=== PATIENT | female | born 1970 | race Caucasian/White ===

== ENCOUNTER 2023-02-17 13:08 | Observation (INO) ==
[2023-02-17] MEDS ORDERED: CONSULT PHARMACY - POTASSIUM & MAGNESIUM XX SCH (14:00)
[2023-02-17 14:15] VITALS: BMI 22.8
[2023-02-17 14:26] LABS: BASOPHILS # (AUTO) 0.1 X10^3/uL (0.0-0.1); BASOPHILS % (AUTO) 0.8 % (0.2-1.0); EOSINOPHILS # (AUTO) 0.2 x10^3/uL (0.0-0.2); EOSINOPHILS % (AUTO) 2.2 % (0.9-2.9); HEMATOCRIT 34.3 % (36.0-47.0); HEMOGLOBIN 10.4 g/dL (12.0-16.0); LYMPHOCYTES # (AUTO) 3.1 X10^3/uL (1.3-2.9); LYMPHOCYTES % (AUTO) 36.3 % (21.0-51.0); MEAN CORPUSCULAR HEMOGLOBIN 17.9 pg (27.0-34.0); MEAN CORPUSCULAR HGB CONC 30.2 g/dL (33.0-35.0); MEAN PLATELET VOLUME 8.6 fL (7.4-11.0); MONOCYTES # (AUTO) 0.5 x10^3/uL (0.3-0.8); NEUTROPHILS # (AUTO) 4.7 x10^3/uL (2.2-4.8); NEUTROPHILS % (AUTO) 54.7 % (42.0-75.0); PLATELET COUNT 567 X10^3/uL (150.0-450.0); RED CELL DISTRIBUTION WIDTH 19.3 % (11.6-16.5); WHITE BLOOD COUNT 8.5 X10^3/uL (3.6-10.0)
[2023-02-17 14:34] LABS: ALANINE AMINOTRANSFERASE 25 Units/L (12-78); ALBUMIN 4.1 g/dL (3.4-5.0); ALKALINE PHOSPHATASE 112 Units/L (46-116); ASPARTATE AMINO TRANSFERASE 22 Units/L (15-37); BLOOD UREA NITROGEN 9 mg/dL (7-18); CARBON DIOXIDE 30.1 mmol/L (21-32); CHLORIDE 100 mmol/L (98-107); CREATININE 0.88 mg/dL (0.55-1.02); GLUCOSE 70 mg/dL (65-99); POTASSIUM 3.6 mmol/L (3.5-5.1); SODIUM 139 mmol/L (136-145); TOTAL PROTEIN 8.4 g/dL (6.4-8.2); eGFR NON BLACK RACES > 60 (>60)
[2023-02-17 14:42] LABS: ANISOCYTOSIS SLIGHT; HYPOCHROMASIA 3+; MICROCYTOSIS 3+; OVALOCYTES SLIGHT; PLATELET MORPHOLOGY COMMENT NORMAL (NORMAL); TARGET CELLS SLIGHT
[2023-02-17] MEDS ORDERED: K-DUR TAB 20 MEQ PO SCH (15:00)
[2023-02-17 15:27] LABS: IRON 19 ug/dL (50-175); TOTAL IRON BINDING CAPACITY 619 ug/dL (250-450)
[2023-02-17] MEDS: REQUIP PO PRN (15:47)
[2023-02-17] MEDS: HEMOCYTE-PLUS PO SCH (17:56)
[2023-02-17] MEDS: NS 1,000 ML IV 1,000 ML IV SCH (17:56)
[2023-02-17] MEDS: ZOFRAN INJ 4 MG VIAL IVP PRN (18:29)
[2023-02-17] MEDS ORDERED: PHENERGAN TAB 25 MG PO PRN (20:37)
[2023-02-17] MEDS ORDERED: PATIENT'S HOME MEDICATION (Temazepam 30 mg capsule) PO PRN (20:37)
[2023-02-17] MEDS ORDERED: RESTORIL CAP 30 MG PO PRN (20:59)
[2023-02-17] MEDS ORDERED: CATAPRES TAB 0.1 MG PO SCH (21:00)
[2023-02-17] MEDS ORDERED: BUSPAR PO SCH (21:00)
[2023-02-17] MEDS ORDERED: DEPAKOTE D.R. TAB PO SCH (21:00)
[2023-02-17] MEDS ORDERED: ESZOPICLONE 1 MG PO SCH (21:00)
[2023-02-17] MEDS: VASOTEC TAB 20 MG PO SCH (21:34)
[2023-02-17] MEDS: ZANAFLEX PO SCH (21:34)
[2023-02-17] MEDS: XANAX PO PRN (21:36)
[2023-02-17] MEDS: AMBIEN PO SCH (21:38)
[2023-02-17] MEDS ORDERED: CATAPRES TAB 0.1 MG PO PRN (22:53)
[2023-02-18] MEDS: NS 1,000 ML IV 1,000 ML IV SCH ×4 (00:59→21:16)
[2023-02-18 05:08] LABS: BASOPHILS # (AUTO) 0.1 X10^3/uL (0.0-0.1); EOSINOPHILS # (AUTO) 0.3 x10^3/uL (0.0-0.2); EOSINOPHILS % (AUTO) 3.8 % (0.9-2.9); HEMATOCRIT 29.4 % (36.0-47.0); HEMOGLOBIN 9.1 g/dL (12.0-16.0); LYMPHOCYTES # (AUTO) 3.9 X10^3/uL (1.3-2.9); LYMPHOCYTES % (AUTO) 57.2 % (21.0-51.0); MEAN CORPUSCULAR HEMOGLOBIN 18.3 pg (27.0-34.0); MEAN CORPUSCULAR HGB CONC 31.1 g/dL (33.0-35.0); MEAN CORPUSCULAR VOLUME 58.9 fL (80.0-100.0); MEAN PLATELET VOLUME 8.6 fL (7.4-11.0); MONOCYTES # (AUTO) 0.3 x10^3/uL (0.3-0.8); MONOCYTES % (AUTO) 4.9 % (0.0-13.0); NEUTROPHILS # (AUTO) 2.2 x10^3/uL (2.2-4.8); NEUTROPHILS % (AUTO) 32.1 % (42.0-75.0); PLATELET COUNT 427 X10^3/uL (150.0-450.0); RED BLOOD COUNT 4.99 X10^6/uL (3.5-5.4); RED CELL DISTRIBUTION WIDTH 19.4 % (11.6-16.5); WHITE BLOOD COUNT 6.7 X10^3/uL (3.6-10.0)
[2023-02-18 05:15] LABS: ALANINE AMINOTRANSFERASE 19 Units/L (12-78); ALBUMIN 3.3 g/dL (3.4-5.0); ALKALINE PHOSPHATASE 88 Units/L (46-116); ASPARTATE AMINO TRANSFERASE 17 Units/L (15-37); BLOOD UREA NITROGEN 8 mg/dL (7-18); CALCIUM 8.6 mg/dL (8.5-10.1); CARBON DIOXIDE 27.8 mmol/L (21-32); CHLORIDE 103 mmol/L (98-107); COR CA(FOR HYPOALB) 9.2 mg/dL (8.5-10.1); CREATININE 0.71 mg/dL (0.55-1.02); GLUCOSE 75 mg/dL (65-99); POTASSIUM 4.2 mmol/L (3.5-5.1); SODIUM 139 mmol/L (136-145); TOTAL PROTEIN 6.6 g/dL (6.4-8.2); eGFR NON BLACK RACES > 60 (>60)
[2023-02-18] MEDS: ZANAFLEX PO SCH ×3 (05:40→21:17)
[2023-02-18 05:53] LABS: PLATELET MORPHOLOGY COMMENT NORMAL (NORMAL)
[2023-02-18 05:54] LABS: ANISOCYTOSIS SLIGHT; HYPOCHROMASIA 3+; MICROCYTOSIS 3+; OVALOCYTES PRESENT; TARGET CELLS PRESENT
[2023-02-18] MEDS ORDERED: ROXICODONE TAB 15 MG PO PRN (06:32)
[2023-02-18] MEDS ORDERED: TYLENOL 325 MG TAB PO PRN (06:32)
[2023-02-18] MEDS ORDERED: PATIENT'S HOME MEDICATION (Cariprazine [Vraylar] 1.5 mg capsule) PO SCH (09:00)
[2023-02-18] MEDS ORDERED: RIZATRIPTAN 10 MG PO SCH (09:00)
[2023-02-18] MEDS ORDERED: [UNRECOGNIZED DRUG - OTHER] PO SCH (09:00)
[2023-02-18] MEDS ORDERED: NS 100 ML IV 100 ML with VENOFER 400 MG IV NR ×2 (10:00)
[2023-02-18] MEDS: IMITREX TAB PO SCH (10:20)
[2023-02-18] MEDS: VASOTEC TAB 20 MG PO SCH ×2 (10:24→21:16)
[2023-02-18] MEDS: PROTONIX TAB 40 MG PO SCH (10:25)
[2023-02-18] MEDS: NORTRIPTYLINE 25 MG PO SCH ×2 (10:26)
[2023-02-18] MEDS: MOBIC TAB 15 MG PO SCH (10:26)
[2023-02-18] MEDS: HEMOCYTE-PLUS PO SCH (10:27)
[2023-02-18] MEDS: AMBIEN PO SCH (21:15)
[2023-02-19] MEDS: ZANAFLEX PO SCH ×3 (05:49→21:31)
[2023-02-19 06:01] LABS: BASOPHILS # (AUTO) 0.1 X10^3/uL (0.0-0.1); BASOPHILS % (AUTO) 1.2 % (0.2-1.0); EOSINOPHILS # (AUTO) 0.2 x10^3/uL (0.0-0.2); EOSINOPHILS % (AUTO) 2.4 % (0.9-2.9); HEMATOCRIT 25.3 % (36.0-47.0); HEMOGLOBIN 7.8 g/dL (12.0-16.0); LYMPHOCYTES # (AUTO) 2.7 X10^3/uL (1.3-2.9); MEAN CORPUSCULAR HGB CONC 30.8 g/dL (33.0-35.0); MEAN CORPUSCULAR VOLUME 58.7 fL (80.0-100.0); MEAN PLATELET VOLUME 8.9 fL (7.4-11.0); MONOCYTES # (AUTO) 0.4 x10^3/uL (0.3-0.8); MONOCYTES % (AUTO) 4.9 % (0.0-13.0); NEUTROPHILS # (AUTO) 4.2 x10^3/uL (2.2-4.8); NEUTROPHILS % (AUTO) 55.5 % (42.0-75.0); PLATELET COUNT 368 X10^3/uL (150.0-450.0); RED CELL DISTRIBUTION WIDTH 19.3 % (11.6-16.5); WHITE BLOOD COUNT 7.6 X10^3/uL (3.6-10.0)
[2023-02-19 06:20] LABS: ALANINE AMINOTRANSFERASE 18 Units/L (12-78); ALBUMIN 2.7 g/dL (3.4-5.0); ALKALINE PHOSPHATASE 77 Units/L (46-116); ASPARTATE AMINO TRANSFERASE 15 Units/L (15-37); BLOOD UREA NITROGEN 6 mg/dL (7-18); CALCIUM 8.1 mg/dL (8.5-10.1); CARBON DIOXIDE 27.8 mmol/L (21-32); CHLORIDE 105 mmol/L (98-107); COR CA(FOR HYPOALB) 9.1 mg/dL (8.5-10.1); CREATININE 0.66 mg/dL (0.55-1.02); GLUCOSE 78 mg/dL (65-99); POTASSIUM 3.9 mmol/L (3.5-5.1); SODIUM 139 mmol/L (136-145); TOTAL PROTEIN 5.7 g/dL (6.4-8.2); eGFR NON BLACK RACES > 60 (>60)
[2023-02-19 06:31] LABS: ANISOCYTOSIS SLIGHT; HYPOCHROMASIA 3+; MICROCYTOSIS 3+; PLATELET MORPHOLOGY COMMENT NORMAL (NORMAL); TARGET CELLS 1+
[2023-02-19] MEDS: ZOFRAN INJ 4 MG VIAL IVP PRN (08:44)
[2023-02-19] MEDS ORDERED: INFeD or DEXFERRUM 25 MG in NS 100 ML IV 100 ML IV ONE (10:00)
[2023-02-19] MEDS: VASOTEC TAB 20 MG PO SCH ×2 (10:59→21:44)
[2023-02-19] MEDS: ELAVIL PO SCH (11:00)
[2023-02-19] MEDS: IMITREX TAB PO SCH ×2 (11:00→11:37)
[2023-02-19] MEDS: MOBIC TAB 15 MG PO SCH (11:01)
[2023-02-19] MEDS: PROTONIX TAB 40 MG PO SCH (11:01)
[2023-02-19] MEDS: HEMOCYTE-PLUS PO SCH (11:01)
[2023-02-19] MEDS ORDERED: INFeD or DEXFERRUM 975 MG in NS 500 ML IV 500 ML IV ONE (11:30)
[2023-02-19] MEDS: REQUIP PO PRN (11:36)
[2023-02-19] MEDS: XANAX PO PRN (11:44)
[2023-02-19 13:13] VITALS: RESP 18
[2023-02-19] MEDS: NS 1,000 ML IV 1,000 ML IV SCH ×2 (13:35→21:33)
--- NOTE | 2023-02-19 18:03 | DR.UPDATE ---
H&P Update Prescription drug monitoring program results: PDMP reviewed and no concerns identified H&P Reviewed: Yes Any changes to H&P?: Yes Changes noted:: PRESENTED THE OFFICE WITH COMPLAINTS OF INCREASING FATIGUE, GENERALIZED WEAKNESS, AND SHORTNESS OF BREATH. SYMPTOMS STARTED A FEW WEEKS AGO AND HAVE PROGRESSIVELY GOTTEN WORSE. LABS WERE OBTAINED ON 02/03 AND REVEALED AN IRON LEVEL OF 12 AND IRON SATURATION OF 2. HER HEMOGLOBIN WAS 9.0. SHE WAS ADMITTED FOR FURTHER EVALUATION AND TREATMENT OF SYMPTOMATIC IRON DEFICIENCY ANEMIA, GENERALIZED WEAKNESS, AND SHORTNESS OF BREATH. HER PMH INCLUDES: HTN, CHRONIC PANCREATITIS, FIBROMYALGIA, ARTHRITIS, OSTEOARTHRITIS, ANEMIA, ANXIETY, BIPOLAR DISORDER, APPENDECTOMY, CHOLECYTECTOMY, HYSTERECTOMY, TONSILLECTOMY, AND GASTRIC BYPASS. ON ARRIVAL TO THE HOSPTIAL, HER VITALS WERE: [id number]/80. LABS WERE OBTAINED. WBC 8.5, RBC 5.80, HGB 10.4, HCT 34.3, PLT COUNT 567, SODIUM 139, POTASSIUM 3.6, CHLORIDE 100, BUN 9, CREATININE 0.88, GLUCOSE 70, CALCIUM 9.0, MAGNESIUM 1.9, IRON 19, TIBC 619, IRON SATURATION % 3.1, AST 22, ALT 25, ALK PHOS 112, TOTAL PROTEIN 8.4, ALBUMIN 4.1. ON ADMISSION, SHE WAS STARTED ON NORMAL SALINE AT 75 ML/HR, ZOFRAN 4MG IV Q6H PRN, HEMOCYTE PLUS DAILY, OTBS ACHS, TYLENOL 325MG PO Q8H PRN. HER HOME MEDICATIONS OF XANAX, ELAVIL, CATAPRES, VASOTEC, MOBIC, ROXICODONE, PROTONIX, PHENERGAN, REQUIP, IMITREX, ZANAFLEX, AND AMBIEN WERE RESUMED. WE WILL CONSULT PHARMACY FOR AN INFUSION OF VENOFER. OTHERWISE, WE WILL FOLLOW UP WITH AM LABS AND CONTINUE TO MONITOR. TIME SPENT ON CLINICAL ASSESSMENT, REVIEWING LABS AND IMAGING, DECISION MAKING, AND DOCUMENTATION GREATER THAN 75 MINUTES. Patient was examined?: Yes Vital Signs: Temp Pulse Resp BP Pulse Ox O2 Del Method O2 Flow Rate 02/19/23 16:00 98.8 F 87 18 111/61 97 Room Air 02/19/23 11:57 20 02/19/23 12:00 98.6 F 92 H 18 126/75 95 Room Air 02/19/23 07:00 Room Air 02/19/23 10:57 20 02/19/23 08:12 Room Air 02/19/23 07:55 98.6 F 108 H 18 116/61 98 Room Air 02/19/23 04:00 98.6 F 71 20 93/54 96 Room Air 02/19/23 00:00 98.3 F 69 20 95/51 96 Room Air 02/18/23 22:17 20 02/18/23 21:17 20 02/18/23 19:00 Room Air 02/18/23 20:00 99.5 F 93 H 18 107/57 98 Room Air 02/18/23 20:49 Nasal Cannula 2 02/18/23 16:00 97.5 F L 77 18 118/62 98 Room Air 02/18/23 12:00 97.8 F 72 18 67/42 96 Room Air 02/18/23 07:00 Room Air 02/18/23 08:00 Room Air 2 02/18/23 08:00 97.6 F 73 20 109/57 100 Room Air 02/18/23 04:00 98.5 F 79 20 88/50 02/18/23 00:00 97.9 F 77 20 93/50 Room Air 02/17/23 20:40 Nasal Cannula 2 02/17/23 19:00 Room Air 02/17/23 19:46 98.1 F 96 H 20 126/73 97 Room Air 02/17/23 16:22 Nasal Cannula 2 02/17/23 15:55 98.1 F 88 20 123/63 Room Air 02/17/23 13:21 Room Air 02/17/23 13:21 98.0 F 107 H 20 140/80 Room Air FiO2 02/19/23 16:00 02/19/23 11:57 02/19/23 12:00 02/19/23 07:00 02/19/23 10:57 02/19/23 08:12 02/19/23 07:55 02/19/23 04:00 02/19/23 00:00 02/18/23 22:17 02/18/23 21:17 02/18/23 19:00 02/18/23 20:00 02/18/23 20:49 28 02/18/23 16:00 02/18/23 12:00 02/18/23 07:00 02/18/23 08:00 28 02/18/23 08:00 02/18/23 04:00 02/18/23 00:00 02/17/23 20:40 28 02/17/23 19:00 02/17/23 19:46 02/17/23 16:22 28 02/17/23 15:55 02/17/23 13:21 02/17/23 13:21
[2023-02-19] MEDS ORDERED: COLACE CAP 100 MG PO PRN (19:34)
[2023-02-19] MEDS: AMBIEN PO SCH (23:22)
[2023-02-20] MEDS: AMBIEN PO SCH (00:02)
[2023-02-20] MEDS: XANAX PO PRN (03:00)
[2023-02-20] MEDS: ZOFRAN INJ 4 MG VIAL IVP PRN (03:27)
[2023-02-20] MEDS: NS 1,000 ML IV 1,000 ML IV SCH ×2 (04:39→11:04)
[2023-02-20 04:52] LABS: BASOPHILS # (AUTO) 0.1 X10^3/uL (0.0-0.1); BASOPHILS % (AUTO) 1.2 % (0.2-1.0); EOSINOPHILS # (AUTO) 0.2 x10^3/uL (0.0-0.2); EOSINOPHILS % (AUTO) 3.8 % (0.9-2.9); HEMATOCRIT 25.7 % (36.0-47.0); LYMPHOCYTES # (AUTO) 3.2 X10^3/uL (1.3-2.9); LYMPHOCYTES % (AUTO) 54.8 % (21.0-51.0); MEAN CORPUSCULAR HEMOGLOBIN 18.5 pg (27.0-34.0); MEAN CORPUSCULAR VOLUME 59.6 fL (80.0-100.0); MEAN PLATELET VOLUME 7.8 fL (7.4-11.0); MONOCYTES # (AUTO) 0.4 x10^3/uL (0.3-0.8); MONOCYTES % (AUTO) 6.4 % (0.0-13.0); NEUTROPHILS % (AUTO) 33.8 % (42.0-75.0); PLATELET COUNT 370 X10^3/uL (150.0-450.0); RED BLOOD COUNT 4.32 X10^6/uL (3.5-5.4); RED CELL DISTRIBUTION WIDTH 19.5 % (11.6-16.5); WHITE BLOOD COUNT 5.9 X10^3/uL (3.6-10.0)
[2023-02-20 05:06] LABS: ALBUMIN 2.9 g/dL (3.4-5.0); ALKALINE PHOSPHATASE 81 Units/L (46-116); BLOOD UREA NITROGEN 4 mg/dL (7-18); CALCIUM 8.3 mg/dL (8.5-10.1); CARBON DIOXIDE 27.8 mmol/L (21-32); CHLORIDE 109 mmol/L (98-107); COR CA(FOR HYPOALB) 9.2 mg/dL (8.5-10.1); GLUCOSE 89 mg/dL (65-99); POTASSIUM 4.2 mmol/L (3.5-5.1); SODIUM 142 mmol/L (136-145); TOTAL PROTEIN 5.7 g/dL (6.4-8.2); eGFR NON BLACK RACES > 60 (>60)
[2023-02-20] MEDS: ZANAFLEX PO SCH (05:39)
[2023-02-20 05:43] LABS: ANISOCYTOSIS SLIGHT; HYPOCHROMASIA 3+; MICROCYTOSIS 3+; PLATELET MORPHOLOGY COMMENT NORMAL (NORMAL)
[2023-02-20 05:44] LABS: OVALOCYTES SLIGHT; SCHISTOCYTES SLIGHT; TARGET CELLS 1+
[2023-02-20 05:46] LABS: ALANINE AMINOTRANSFERASE 15 Units/L (12-78); ASPARTATE AMINO TRANSFERASE 19 Units/L (15-37)
[2023-02-20] MEDS: HEMOCYTE-PLUS PO SCH (09:05)
[2023-02-20] MEDS: MOBIC TAB 15 MG PO SCH (09:06)
[2023-02-20] MEDS: VASOTEC TAB 20 MG PO SCH (09:06)
[2023-02-20] MEDS: ELAVIL PO SCH (09:06)
[2023-02-20] MEDS: IMITREX TAB PO SCH (09:07)
[2023-02-20] MEDS: PROTONIX TAB 40 MG PO SCH (09:07)
[2023-02-20 09:24] VITALS: BP 123/72; PULSE 86; TEMP 98.8; O2SAT 97
--- NOTE | 2023-02-24 16:25 | W.DIS.FURT ---
Summary of Discharge Discharge Summary of Date Date of Exam: 02/20/23 Admission Date Date of Admission: 02/18/23 Admission Diagnosis Hospital Course: Ms. Hemphill is a 52-year-old female who was admitted for symptomatic anemia. She was seen in the office with symptoms of fatigue, generalized weakness and shortness of breath. Outpatient labs revealed iron level of 12 and hemoglobin was 9. She has a history of BERNA, chronic pancreatitis, hypertension, fibromyalgia, osteoarthritis, anxiety and bipolar disorder. Patient was admitted for further management of anemia. She was started on iron infusion and p.o. iron supplement. She states she was not taking iron supplement as it made her sick with nausea and upset stomach. Her labs were monitored daily and electrolytes were replaced as needed. Her home medications were resumed. Her hemoglobin was 8.0 on day of discharge. She states her weakness and fatigue has improved. Her baseline hemoglobin is between 8 and 9. She was ambulating in the room and tolerating p.o. intake. She was stable for discharge home. She will follow-up with her PCP in 3 days and have repeat labs done. She was started on Ambien for insomnia while inpatient, discussed with patient that she can be discharged on 3 days of Ambien as needed but will need to discuss with PCP. She was also discharged on ropinirole for restless leg syndrome. Vital Signs: Vital Signs (72 hours) 02/17/23 13:21 02/17/23 13:21 02/17/23 15:55 Temperature 98.0 F 98.1 F Pulse Rate [Right Brachial] 107 H 88 Respiratory Rate 20 20 Blood Pressure [Right Arm] 140/80 123/63 O2 Sat by Pulse Oximetry Oxygen Delivery Method Room Air Room Air Room Air Oxygen Flow Rate FIO2% 02/17/23 16:22 02/17/23 19:46 02/17/23 19:00 Temperature 98.1 F Pulse Rate [Right Brachial] 96 H Respiratory Rate 20 Blood Pressure [Right Arm] 126/73 O2 Sat by Pulse Oximetry 97 Oxygen Delivery Method Nasal Cannula Room Air Room Air Oxygen Flow Rate 2 FIO2% 28 02/17/23 20:40 02/18/23 00:00 02/18/23 04:00 Temperature 97.9 F 98.5 F Pulse Rate [Right Brachial] 77 79 Respiratory Rate 20 20 Blood Pressure [Right Arm] 93/50 88/50 O2 Sat by Pulse Oximetry Oxygen Delivery Method Nasal Cannula Room Air Oxygen Flow Rate 2 FIO2% 28 02/18/23 08:00 02/18/23 08:00 02/18/23 07:00 Temperature 97.6 F Pulse Rate [Right Brachial] 73 Respiratory Rate 20 Blood Pressure [Right Arm] 109/57 O2 Sat by Pulse Oximetry 100 Oxygen Delivery Method Room Air Room Air Room Air Oxygen Flow Rate 2 FIO2% 28 02/18/23 12:00 02/18/23 16:00 02/18/23 20:49 Temperature 97.8 F 97.5 F L Pulse Rate [Right Brachial] 72 77 Respiratory Rate 18 18 Blood Pressure [Right Arm] 67/42 118/62 O2 Sat by Pulse Oximetry 96 98 Oxygen Delivery Method Room Air Room Air Nasal Cannula Oxygen Flow Rate 2 FIO2% 28 02/18/23 20:00 02/18/23 19:00 02/18/23 21:17 Temperature 99.5 F Pulse Rate [Right Brachial] 93 H Respiratory Rate 18 20 Blood Pressure [Right Arm] 107/57 O2 Sat by Pulse Oximetry 98 Oxygen Delivery Method Room Air Room Air Oxygen Flow Rate FIO2% 02/18/23 22:17 02/19/23 00:00 02/19/23 04:00 Temperature 98.3 F 98.6 F Pulse Rate [Right Brachial] 69 71 Respiratory Rate 20 20 20 Blood Pressure [Right Arm] 95/51 93/54 O2 Sat by Pulse Oximetry 96 96 Oxygen Delivery Method Room Air Room Air Oxygen Flow Rate FIO2% 02/19/23 07:55 02/19/23 08:12 02/19/23 10:57 Temperature 98.6 F Pulse Rate [Right Brachial] 108 H Respiratory Rate 18 20 Blood Pressure [Right Arm] 116/61 O2 Sat by Pulse Oximetry 98 Oxygen Delivery Method Room Air Room Air Oxygen Flow Rate FIO2% 02/19/23 07:00 02/19/23 12:00 02/19/23 11:57 Temperature 98.6 F Pulse Rate [Right Brachial] 92 H Respiratory Rate 18 20 Blood Pressure [Right Arm] 126/75 O2 Sat by Pulse Oximetry 95 Oxygen Delivery Method Room Air Room Air Oxygen Flow Rate FIO2% 02/19/23 16:00 02/19/23 19:00 02/19/23 20:00 Temperature 98.8 F 98.8 F Pulse Rate [Right Brachial] 87 70 Respiratory Rate 18 18 Blood Pressure [Right Arm] 111/61 106/53 O2 Sat by Pulse Oximetry 97 97 Oxygen Delivery Method Room Air Room Air Room Air Oxygen Flow Rate FIO2% 02/19/23 20:09 02/20/23 00:01 02/20/23 00:00 Temperature 97.6 F Pulse Rate [Right Brachial] 76 Respiratory Rate 18 Blood Pressure [Right Arm] 108/70 O2 Sat by Pulse Oximetry 97 Oxygen Delivery Method Nasal Cannula Nasal Cannula Oxygen Flow Rate 2 2 FIO2% 28 28 02/20/23 04:00 02/20/23 07:00 02/20/23 08:00 Temperature 98.2 F 98.8 F Pulse Rate [Right Brachial] 70 86 Respiratory Rate 18 18 Blood Pressure [Right Arm] 109/63 123/72 O2 Sat by Pulse Oximetry 98 97 Oxygen Delivery Method Room Air Room Air Room Air Oxygen Flow Rate FIO2% 02/20/23 09:29 Temperature Pulse Rate [Right Brachial] Respiratory Rate Blood Pressure [Right Arm] O2 Sat by Pulse Oximetry Oxygen Delivery Method Nasal Cannula Oxygen Flow Rate 2 FIO2% 28 Labs: Laboratory Last Values WBC 5.9 X10^3/uL (3.6-10.0) 02/20/23 04:33 RBC 4.32 X10^6/uL (3.5-5.4) 02/20/23 04:33 Hgb 8.0 g/dL (12.0-16.0) L 02/20/23 04:33 Hct 25.7 % (36.0-47.0) L 02/20/23 04:33 MCV 59.6 fL (80.0-100.0) L 02/20/23 04:33 MCH 18.5 pg (27.0-34.0) L 02/20/23 04:33 MCHC 31.0 g/dL (33.0-35.0) L 02/20/23 04:33 RDW 19.5 % (11.6-16.5) H 02/20/23 04:33 Plt Count 370 X10^3/uL (150.0-450.0) 02/20/23 04:33 Plt Count Comment Adequate (ADEQUATE) 02/20/23 04:33 MPV 7.8 fL (7.4-11.0) 02/20/23 04:33 Neut % (Auto) 33.8 % (42.0-75.0) L 02/20/23 04:33 Lymph % (Auto) 54.8 % (21.0-51.0) H 02/20/23 04:33 Floyd % (Auto) 6.4 % (0.0-13.0) 02/20/23 04:33 Eos % (Auto) 3.8 % (0.9-2.9) H 02/20/23 04:33 Baso % (Auto) 1.2 % (0.2-1.0) H 02/20/23 04:33 Neut # (Auto) 2.0 x10^3/uL (2.2-4.8) L 02/20/23 04:33 Lymph # (Auto) 3.2 X10^3/uL (1.3-2.9) H 02/20/23 04:33 Floyd # (Auto) 0.4 x10^3/uL (0.3-0.8) 02/20/23 04:33 Eos # (Auto) 0.2 x10^3/uL (0.0-0.2) 02/20/23 04:33 Baso # (Auto) 0.1 X10^3/uL (0.0-0.1) 02/20/23 04:33 Absolute Nucleated RBC 0.1 /100WBC 02/20/23 04:33 Plt Morphology Comment Normal (NORMAL) 02/20/23 04:33 RBC Morphology Abnormal (NORMAL) A 02/20/23 04:33 Hypochromasia 3+ A 02/20/23 04:33 Anisocytosis Slight A 02/20/23 04:33 Microcytosis 3+ A 02/20/23 04:33 Target Cells 1+ A 02/20/23 04:33 Ovalocytes Slight A 02/20/23 04:33 Schistocytes Slight A 02/20/23 04:33 Sodium 142 mmol/L (136-145) 02/20/23 04:33 Corrected Sodium TNP 02/20/23 04:33 Potassium 4.2 mmol/L (3.5-5.1) 02/20/23 04:33 Chloride 109 mmol/L (98-107) H 02/20/23 04:33 Carbon Dioxide 27.8 mmol/L (21-32) 02/20/23 04:33 BUN 4 mg/dL (7-18) L 02/20/23 04:33 Creatinine 0.70 mg/dL (0.55-1.02) 02/20/23 04:33 Est GFR (MDRD) Af Amer > 60 (>60) 02/20/23 04:33 Est GFR (MDRD) Non-Af > 60 (>60) 02/20/23 04:33 Glucose 89 mg/dL (65-99) 02/20/23 04:33 POC Glucose (mg/dL) 72 mg/dL (65-99) 02/20/23 05:20 Calcium 8.3 mg/dL (8.5-10.1) L 02/20/23 04:33 Corrected Calcium 9.2 mg/dL (8.5-10.1) 02/20/23 04:33 Magnesium 2.0 mg/dL (2.0-2.9) 02/18/23 04:30 Iron 19 ug/dL (50-175) L 02/17/23 14:13 TIBC 619 ug/dL (250-450) H 02/17/23 14:13 % Saturation 3.1 % (11.0-46.0) L 02/17/23 14:13 Total Bilirubin 0.10 mg/dL (0.2-1.0) L 02/20/23 04:33 AST 19 Units/L (15-37) 02/20/23 04:33 ALT 15 Units/L (12-78) 02/20/23 04:33 Alkaline Phosphatase 81 Units/L (46-116) 02/20/23 04:33 Total Protein 5.7 g/dL (6.4-8.2) L 02/20/23 04:33 Albumin 2.9 g/dL (3.4-5.0) L 02/20/23 04:33 Globulin 2.8 g/dL (2.5-4.5) 02/20/23 04:33 Albumin/Globulin Ratio 1.0 Ratio (1.1-2.1) L 02/20/23 04:33 Vitamin B12 326 pg/mL (193-986) 02/17/23 14:13 Folate 6.9 ng/mL (>8.6) L 02/17/23 14:13 Stl Occult Blood (IFOB) Negative (NEGATIVE) 02/20/23 10:00 Reason For Visit: SYMPTOMATIC IRON DEFICIENCY Discharge Diagnosis All Active Problems (Updated 11/19/22 @ 11:07 by HELEN CHRISTENSEN) Status post endoscopy (Acute) Plan of Treatment: Continue with present treatment and follow up plan. Pt is to keep follow up appointment as instructed and take medications as ordered. Discharge Medications Discharge Medications: duloxetine [From Cymbalta] Allergy (Verified 11/19/22 10:26) gabapentin Allergy (Verified 11/19/22 10:26) pregabalin [From Lyrica] Allergy (Verified 11/19/22 10:26) CONTINUE taking the following medications alprazolam 1 mg tablet 1 mg PO BID PRN 02/17/23 [History] buspirone 10 mg tablet 10 mg PO BID 02/17/23 [History] cariprazine 1.5 mg capsule (Vraylar) 1.5 mg PO QDAY 02/17/23 [History] cyanocobalamin (vitamin B-12) 1,000 mcg/mL injection solution 1,000 mcg IM MONTHLY 02/17/23 [History] daridorexant 25 mg tablet (Quviviq) 25 mg PO QDAY 02/17/23 [History] divalproex 250 mg tablet,delayed release 250 mg PO BID 02/17/23 [History] enalapril maleate 20 mg tablet 20 mg PO BID 02/17/23 [History] eszopiclone 1 mg tablet 1 mg PO HS 02/17/23 [History] ferrous sulfate 325 mg (65 mg iron) tablet 325 mg PO DAILY 02/17/23 [History] meloxicam 15 mg tablet 15 mg PO QDAY 02/17/23 [History] nortriptyline 25 mg capsule 25 mg PO DAILY 02/17/23 [History] oxycodone-acetaminophen 7.5 mg-325 mg tablet 1 tab PO TID PRN 02/17/23 [History] promethazine 25 mg tablet 25 mg PO Q6H PRN 02/17/23 [History] rizatriptan 10 mg tablet 10 mg PO QDAY 02/17/23 [History] New Prescriptions B [id number] 106 mg iron-1 mg tablet (Ferrocite Plus) 1 tab PO DAILY 30 days #30 tabs 02/20/23 [Rx] ropinirole 1 mg tablet 1 mg PO HS 30 days #30 tabs 02/20/23 [Rx] zolpidem 5 mg tablet 5 mg PO HS PRN insomnia 3 days #3 tabs 02/20/23 [Rx] Discharge Disposition Discharge Disposition: To home Discharge Condition: Stable Discharge Plan Discharge Plan Hospital Course: Ms. Hemphill is a 52-year-old female who was admitted for symptomatic anemia. She was seen in the office with symptoms of fatigue, generalized weakness and shortness of breath. Outpatient labs revealed iron level of 12 and hemoglobin was 9. She has a history of BERNA, chronic pancreatitis, hypertension, fibromyalgia, osteoarthritis, anxiety and bipolar disorder. Patient was admitted for further management of anemia. She was started on iron infusion and p.o. iron supplement. She states she was not taking iron supplement as it made her sick with nausea and upset stomach. Her labs were monitored daily and electrolytes were replaced as needed. Her home medications were resumed. Her hemoglobin was 8.0 on day of discharge. She states her weakness and fatigue has improved. Her baseline hemoglobin is between 8 and 9. She was ambulating in the room and tolerating p.o. intake. She was stable for discharge home. She will follow-up with her PCP in 3 days and have repeat labs done. She was started on Ambien for insomnia while inpatient, discussed with patient that she can be discharged on 3 days of Ambien as needed but will need to discuss with P DANIEL. She was also discharged on ropinirole for restless leg syndrome. Patient Disposition: 01 HOME, SELF-CARE Condition: Stable Health Concerns: Post Hospitalization: new medications and changes needed to prevent readmission or further decline. Pt educated and given instructions on all concerns. Plan of Treatment: Continue with present treatment and follow up plan. Pt is to keep follow up appointment as instructed and take medications as ordered. Prescriptions: New ropinirole 1 mg Tablet 1 mg PO HS 30 Days Qty: 30 0RF Ferrocite Plus 106 mg iron- 1 mg Tablet 1 tab PO DAILY 30 Days Qty: 30 0RF Continued temazepam 30 mg capsule 30 mg PO QPM PRN pantoprazole 40 mg tablet,delayed release (DR/EC) 40 mg PO QDAY tizanidine 4 mg tablet 4 mg PO TID clonidine HCl 0.1 mg tablet 0.1 mg PO BID divalproex 250 mg tablet,delayed release (DR/EC) 250 mg PO BID enalapril maleate 20 mg tablet 20 mg PO BID meloxicam 15 mg tablet 15 mg PO QDAY buspirone 10 mg tablet 10 mg PO BID alprazolam 1 mg tablet 1 mg PO BID PRN rizatriptan 10 mg tablet 10 mg PO QDAY oxycodone-acetaminophen 7.5-325 mg tablet 1 tab PO TID PRN nortriptyline 25 mg capsule 25 mg PO DAILY cyanocobalamin (vitamin B-12) 1,000 mcg/mL solution 1,000 mcg IM MONTHLY promethazine 25 mg tablet 25 mg PO Q6H PRN Vraylar 1.5 mg capsule 1.5 mg PO QDAY Discontinued Quviviq 25 mg tablet 25 mg PO QDAY eszopiclone 1 mg Tablet 1 mg PO HS ferrous sulfate 325 mg (65 mg iron) Tablet 325 mg PO DAILY Orders to Discharge Patient Discharge Orders: Discharge (Routine); Ordered 02/20/23 Ordered By: Jaclyn Martinez Follow ups/Referrals Follow ups/Referrals: Shan Owen [STAFF PHYSICIAN] - 1 WEEK Instructions Instructions: Iron Deficiency Anemia, Adult, [id number] Stand Alone Forms: Excuse From Work or School, Post Hospital Follow Up Care
== END 2023-02-20 12:05 | disposition home or self-care (01) ==
LOC: MED/SURG
PROVIDERS: ADMIT Internal Medicine; ATTEND Internal Medicine
DX: R06.02 Shortness of breath; R53.1 Weakness; I95.89 Other hypotension; M79.7 Fibromyalgia; R53.83 Other fatigue; D50.8 Other iron deficiency anemias; Z98.84 Bariatric surgery status; F31.89 Other bipolar disorder